=== PATIENT | female | born 1955 | race Caucasian/White ===

== ENCOUNTER 2019-01-01 06:04 | Day surgery (SDC) | payer OTHER ==
[~2019-01-01] VITALS: Ht 170.2 cm; Wt 100.2 kg
[~2019-01-01 06:04] MED LIST: ALLEGRA ALLERG180 M1 PO; ALLERCLEAR10 MG PO; ALPR.5 PO; ASPI81EC PO; CHOL10002 PO; ESTR2 PO; FLAXSEED1000 MG PO; GINKGO60 MG PO; Hair, Skin & N1 EACH PO; LEVSOD100 PO; Lotrel 10-20 M1 EACH PO; OLAN2.5 PO; RANI150 PO; SIMV10 PO; VENL75ER PO
--- NOTE | 2019-01-01 06:56 | NUR ---
Ambulatory in Day Surgery. Surgical site prepped with 2% Chlorhexidine cloth wipe. History, Chart, Medications and Allergies reviewed before start of procedure. Lungs clear T/O to Auscultation. Patient confirms NPO status and agrees with scheduled surgery. Pre-Op teaching done. Pt verbalizes understanding. Patient reports completing Chlorhexadine shower X2 prior to admission to hospital. , Kane, at bedside.
--- NOTE | 2019-01-01 13:48 | NUR ---
PT ARRIVED TO THE ROOM AT APPROXIMATELY 1130. PT ALERT AND ORIENTED. SHE DENIED N/V. PAIN MANAGED. FAMILY PRESENT FOR SUPPORT. WILL CONTINUE TO MONITOR.
--- NOTE | 2019-01-01 17:38 | NUR ---
SHIFT SUMMARY PAIN HAS BEEN MANAGED WITH PO PAIN MEDICATIONS. PT IS A 1 ASSIST WHEN OOB. SHE WORKED WITH THERAPY THIS AFTERNOON. VOIDING WELL. VSS. WILL MONITOR UNTIL REPORT TO ONCOMING RN.
--- NOTE | 2019-01-02 05:11 | NUR ---
SHIFT SUMMARY PT IS POD 1 RIGHT TKA. PT IS A&O, ABLE TO MAKE NEEDS KNOWN. SHE HAS HAD MINIMAL PAIN, MORE PAINFUL WITH AMBULATION, MEDICATED PER EMAR. PT WALKED IN THE ONEAL LAST NIGHT BEFORE BED. TOLERATING PO. ORIGINAL BULKY DRESSING IN PLACE, PT USING POLAR PACK, MEDICATED FOR PAIN PER EMAR. WILL CTM UNTIL PASS TO NEXT SHIFT.
[2019-01-02 05:26] LABS: BASOPHILS ABSOLUTE AUTO 0.01 K/mm3 (0.00-0.23); BASOPHILS PERCENT AUTO 0 % (0-2); EOSINOPHILS PERCENT AUTO 0 % (0-6); Hematocrit 36.9 % (33.0-51.0); IMMATURE GRAN ABSOLUTE AUTO 0.05 K/mm3 (0.00-0.10); IMMATURE GRAN PERCENT AUTO 0 % (0-1); LYMPHOCYTES ABSOLUTE AUTO 1.07 K/mm3 (0.84-5.20); LYMPHOCYTES PERCENT AUTO 9 % (21-46); MONOCYTES ABSOLUTE AUTO 0.98 K/mm3 (0.16-1.47); MONOCYTES PERCENT AUTO 8 % (4-13); Mean Corpuscular HGB 30.9 pg (26.0-34.0); Mean Corpuscular HGB Conc 32.5 g/dL (31.5-36.5); Mean Corpuscular Volume 95 fL (80-100); Mean Platelet Volume 10.8 fL (9.1-12.4); NEUTROPHILS ABSOLUTE AUTO 9.81 K/mm3 (1.96-9.15); NEUTROPHILS PERCENT AUTO 82 % (41-73); Platelet Count 184 K/mm3 (150-400); RDW Coefficient Variation 13.7 % (11.7-14.2); RDW Standard Deviation 47.8 fL (35.1-46.3); Red Blood Cell Count 3.88 M/mm3 (3.80-5.20); White Blood Cell Count 11.92 K/mm3 (4.00-11.30)
[2019-01-02 06:32] LABS: Anion Gap 6 mmol/L (6-16); Blood Urea Nitrogen 14 mg/dL (8-24); Bun/Creatinine Ratio 15.6 (12.0-20.0); CO2, Blood 27 mmol/L (21-32); Calcium, Blood 8.4 mg/dL (8.5-10.1); Chloride, Blood 108 mmol/L (98-108); Glomerular Filtration Rate >60 (60-); Glucose, Blood 131 mg/dL (70-99); Magnesium, Blood 2.4 mg/dL (1.6-2.4); Potassium, Blood 4.3 mmol/L (3.5-5.5); Sodium, Blood 141 mmol/L (136-145)
[2019-01-02] MEDS ORDERED: OXYC5 PO (14:23)
[2019-01-02] MEDS ORDERED: ASPI325EC PO (14:30)
--- NOTE | 2019-01-02 16:01 | NUR ---
DISCHARGE PT DISCHARGED HOME AT THIS TIME WITH SPOUSE AT SIDE. PT EDUCATED ON AND RECEIVED PRINTED DC INSTRUCTIONS AND VERB AN UNDERSTANDING. HARD RX GIVEN FOR OXYCODONE AND PT REPORTS HAVING ASA AT HOME. X2 AQUACEL DRESSINGS GIVEN TO PT. IV DC'D. ALL PERSONAL BELONGINGS SENT HOME WITH PT. PT ESCORTED OUT VIA W/C.
--- NOTE | 2019-01-03 09:42 | NUR ---
01/03/19 0942 Cary Thomas VERIFICATIONS: EDIT CHART.
== END 2019-01-02 15:38 | disposition home or self-care (01) ==
LOC: ORSCMMR 06:04 → ORD 07:30 → SURS 11:27 → ORSCMMR 01-02 15:38
PROVIDERS: Orthopaedic Surgery
PROC: 0SRC0J9 Replacement of Right Knee Joint with Synthetic Substitute, Cemented, Open Approach (ICD-10-PCS; principal; 2019-01-01 07:30)
DX: M17.11 Unilateral primary osteoarthritis, right knee (principal); I10 Essential (primary) hypertension; E03.9 Hypothyroidism, unspecified; E66.9 Obesity, unspecified; Z68.34 Body mass index [BMI] 34.0-34.9, adult; Z79.899 Other long term (current) drug therapy
CPT/HCPCS: 36415; 73560-RT; 80048; 83735; 85025; 88300; 97110; 97116; 97162; 97530; C1713; C1776; J0171; J0690; J0735; J1100; J1885; J2250; J2405; J2704; J2795; J3010; J7120

== ENCOUNTER → 2019-09-13 | Outpatient (CLI) | payer OTHER ==
[~2019-09-13] MED LIST changes: +ASPI325EC PO; +OXYC5 PO
[2019-09-17 15:07] LABS: HPV 16 Negative (Negative); HPV 18 Negative (Negative); HPV OTHER HR TYPES Negative (Negative)
== END ==
LOC: LAB SHORT 14:02 → LAB 14:02
PROVIDERS: Nurse Practitioner Women's Health
DX: Z12.4 Encounter for screening for malignant neoplasm of cervix (principal); Z91.89 Other specified personal risk factors, not elsewhere classified
CPT/HCPCS: 87624; G0123

== ENCOUNTER → 2020-03-03 | Outpatient (CLI) | payer OTHER ==
[2020-03-03 08:18] LABS: CHOL/HDL RATIO 6.2; Cholesterol 247 mg/dL (50-200); HDL Cholesterol 40 mg/dL (>39); LDL/HDL RATIO 4.2; Low Density Lipoprotein Chol 167 mg/dL (<110); Triglycerides 198 mg/dL (30-160); Very Low Density Lipoprot Chol 39 mg/dL (6-32)
== END | disposition home or self-care (01) ==
LOC: LAB SHORT 07:42 → LAB EV 07:42
PROVIDERS: Physician Assistant
DX: E78.2 Mixed hyperlipidemia (principal); R20.2 Paresthesia of skin
CPT/HCPCS: 36415; 80061; 82607

== ENCOUNTER 2020-07-09 06:59 | Day surgery (SDC) | payer OTHER ==
[~2020-07-09] VITALS: Ht 170.2 cm; Wt 97.9 kg
[~2020-07-09 06:59] MED LIST changes: +LOTREL 10-20 M1 EACH; -Lotrel 10-20 M1 EACH PO
--- NOTE | 2020-07-09 08:19 | NUR ---
07/09/20 0818 Mary Roque History, Chart, Medications and Allergies reviewed before start of procedure.PATIENT DETERMINED TO BE ASA APPROPRIATE FOR PROPOFOL SEDATION PRIOR TO START OF PROCEDURE BY .MONITOR INTACT WITH CONTINUOUS PULSE OXIMETRY AND INTERMITTENT BP.3-LEAD EKG REVIEWED WITH PHYSICIAN PRIOR TO START OF PROCEDURE.O2 VIA N/C INTACT THROUGHOUT SEDATION/PROCEDURE.
--- NOTE | 2020-07-09 09:12 | NUR ---
Ambulatory in Day Surgery Discharge instructions reviewed with patient. Patient verbalizes understanding. Copy given to patient to take home. Discharged via wheelchair to private car for ride home.
== END 2020-07-09 22:51 | disposition home or self-care (01) ==
LOC: ORSCMMR 06:59 → ORD 08:00 → ORSCMMR 08:00
PROVIDERS: Internal Medicine Gastroenterology
PROC: 0DBN8ZX Excision of Sigmoid Colon, Via Natural or Artificial Opening Endoscopic, Diagnostic (ICD-10-PCS; principal; 2020-07-09 08:00)
DX: Z12.11 Encounter for screening for malignant neoplasm of colon (principal); K57.30 Diverticulosis of large intestine without perforation or abscess without bleeding; K64.8 Other hemorrhoids; E05.00 Thyrotoxicosis with diffuse goiter without thyrotoxic crisis or storm; I10 Essential (primary) hypertension; F31.9 Bipolar disorder, unspecified; K21.9 Gastro-esophageal reflux disease without esophagitis; Z79.899 Other long term (current) drug therapy
CPT/HCPCS: 88305; J2704; J7120